=== PATIENT | female | born 2005 | race Caucasian/White ===

== ENCOUNTER 2024-11-01 20:15 | Emergency (ER) | payer SELFPAY ==
[~2024-11-01] VITALS: Ht 170.2 cm; Wt 96.0 kg
[~2024-11-01 20:15] MED LIST: ACETAMIN OR; BENADYL EL25 MG/10 M PO; PREDNISOLO15 MG/5 M1 PO; PRELONE 15MG/5ML5 ML OR; PRELONE15 MG/5 M1 OR; RONDEC-DM OR; TAMIFLU12 MG/ML OR; ZITHROMAX200 MG/5 M OR; ZOFRAN4 MG/TAB PO
[2024-11-01 21:06] VITALS: BP 123/72
[2024-11-01] MEDS ORDERED: HYDROcodone POLISTIREX/CHLORPH 5 ML UDC PO ONE (21:10)
[2024-11-01 21:24] LABS: EOS% 10.3 % (0-8); HEMATOCRIT 44.2 % (37.0-47.0); HEMOGLOBIN 14.3 g/dl (12.0-16.0); IMMATURE GRANULOCYTES 0.1 % (0.0-5.0); LYMPH% 30.1 % (15-41); MEAN CELL VOLUME 83.4 fL CALC (80.0-100.0); MEAN CORPUSCULAR HGB CONC 32.4 g/dL CAL (32.0-36.0); NEUT# 3.33 thou/uL (2.00-7.15); NEUT% 47.5 % (42-76); RED BLOOD COUNT 5.3 mill/uL (4.20-5.60); RED CELL DISTRI WIDTH 13.5 % (11.5-15.5)
[2024-11-01 21:45] VITALS: BP 123/72
== END 2024-11-01 21:53 | disposition home or self-care (01) | DRG 153 ==
LOC: ED 20:15
PROVIDERS: Family Medicine
DX: J06.9 Acute upper respiratory infection, unspecified (principal); Z20.822 Contact with and (suspected) exposure to COVID-19

== ENCOUNTER 2024-11-19 18:40 | Emergency (ER) | payer SELFPAY ==
[~2024-11-19] VITALS: Ht 170.2 cm; Wt 98.0 kg
[2024-11-19 18:50] VITALS: BP 126/70
[2024-11-19 19:00] VITALS: BP 124/72
[2024-11-19 19:15] VITALS: BP 130/82
[2024-11-19 19:30] VITALS: BP 125/74
[2024-11-19] MEDS ORDERED: SODIUM CHLORIDE 0.9% 1,000 ML IV ONE (19:35)
[2024-11-19] MEDS ORDERED: MEDDOSEPAK PO (20:10)
[2024-11-19] MEDS ORDERED: TAM75CAP PO (20:10)
[2024-11-19] MEDS ORDERED: BENZONATATE200 MG PO (20:10)
[2024-11-19] MEDS ORDERED: OSELTAMIVIR PHOSPHATE 75 MG/TAB CAP PO ONE (20:15)
[2024-11-19 21:17] VITALS: BP 130/82
== END 2024-11-19 21:17 | disposition home or self-care (01) | DRG 195 ==
LOC: ED 18:40
DX: J10.1 Influenza due to other identified influenza virus with other respiratory manifestations (principal); Z20.822 Contact with and (suspected) exposure to COVID-19
CPT/HCPCS: J1100